=== PATIENT | male | born 1940 | race Caucasian/White ===

== ENCOUNTER 2016-08-22 17:33 | Emergency (ER) | payer MEDICARE ==
[2016-08-22 15:15] LABS: BASOPHILS 0.4 %; BASOPHILS ABSOLUTE 0.03 10/3/uL (0.0-0.16); EOSINOPHILS 4.9 %; EOSINOPHILS ABSOLUTE 0.37 10/3/uL (0.0-0.53); LYMPHOCYTES 13.8 %; LYMPHOCYTES ABSOLUTE 1.04 10/3/uL (0.67-4.30); MEAN CORPUS HGB CONC 32.9 g/dL (32.0-36.0); MEAN PLATELET VOLUME 9.4 fL (9.2-13.0); MONOCYTES 9.7 %; MONOCYTES ABSOLUTE 0.73 10/3/uL (0.21-1.20); NEUTROPHILS 71.2 %; NEUTROPHILS ABSOLUTE 5.36 10/3/uL (2.02-8.40); PLATELET COUNT 186 10/3/uL (150-400); RBC DISTRIBUTION WIDTH 20.1 % (12.0-16.0)
[2016-08-22 15:19] LABS: ER CBC TAT 0 Hrs 11 Mins; HEMATOCRIT 33.4 % (40.0-51.0); MANUAL DIFF NO %; MEAN CORPUSCULAR HEMOGLOB 28.9 pg (26.0-34.0); MEAN CORPUSCULAR VOLUME 87.9 fL (80-100); WHITE BLOOD CELLS 7.5 10/3/uL (4.5-10.5)
[2016-08-22 15:23] LABS: INTERNATIONAL NORMAL RATI 1.1 UNITS (-); PARTIAL THROMBO TIME 34.4 SEC (22.5-37.2); PROTIME (NOT ORD) 14.5 SEC (12.0-14.5)
[2016-08-22 15:30] LABS: BUN (BLOOD UREA NITROGEN) 25 MG/DL (6-23); CALCIUM, SERUM 8.6 MG/DL (8.5-10.4); CHEST PAIN PROFILE TAT 0 Hrs 22 Mins; CHLORIDE, SERUM 107 MMOL/L (96-112); CO2 (CARBON DIOXIDE) 26 MMOL/L (24-34); CREATININE 1.16 MG/DL (0.70-1.30); GFR AFRICAN AMERICAN 71 ML/MIN (>=60); GFR NON AFRICAN AMERICAN 61 ML/MIN (>=60); GLUCOSE, SERUM 95 MG/DL (60-99); POTASSIUM, SERUM 3.7 MMOL/L (3.5-5.3); SODIUM, SERUM 141 MMOL/L (135-148); TROPONIN I <0.02 NG/ML (<0.05)
[~2016-08-22 17:33] MED LIST: ALTA5 PO; ALTACE10 MG PO; ASAB PO; AT25 PO; AUG875 PO; BIST PO; BRILINTA90 MG PO; DULCOLAX STOOL100 MG PO; EXELON6 MG PO; EZFE 200200 MG PO; FESO4 PO; FISH-EPA1000 MG PO; FLOMAX4 PO; FLORASTOR250 MG PO; FOLIC PO; HALF81 PO; IMDUR30 PO; LOP25 PO; MAX25 PO; MULTIPLE VIT PO; NAMENDA10 MG PO; NAMENXR7 PO; NITROQUICK0.4 MG SL; NITROSTAT0.4 MG; NITROSTAT0.4 MG SL; NORCO1 TA1 PO; PAX10 PO; PEP20 PO; PLAVIX PO; PRAV10 PO; PROTONIX PO; PROZ10 PO; PROZAC PO; SEROQUEL25 PO; T3 PO; TAMIFLU PO; TRIAMCINOLONE C80 GM TOP; VITAMIN B 12 PO; VITAMIN B PO; VITAMIN B12 OTC PO; ZOCOR20 PO; [UNRECOGNIZED DRUG - OTHER] PO
== END 2016-08-22 17:51 | disposition home or self-care (01) ==
LOC: ER 17:33
PROVIDERS: Emergency Medicine
DX: S16.1XXA Strain of muscle, fascia and tendon at neck level, initial encounter (principal); M43.6 Torticollis; I10 Essential (primary) hypertension; F03.90 Unspecified dementia, unspecified severity, without behavioral disturbance, psychotic disturbance, mood disturbance, and anxiety; Z79.82 Long term (current) use of aspirin; Z95.1 Presence of aortocoronary bypass graft; Z79.899 Other long term (current) drug therapy; X58.XXXA Exposure to other specified factors, initial encounter
CPT/HCPCS: 71020; 80048; 83735; 84484; 85025; 85610; 85730; 93005; 99284; A9270-GY